=== PATIENT | male | born 1965 | race Caucasian/White ===

== ENCOUNTER 2019-09-27 10:37 | Emergency (ER) | payer MEDICARE, OTHER ==
[~2019-09-27] VITALS: Ht 167.6 cm; Wt 77.1 kg
[~2019-09-27 10:37] MED LIST: ATIVAN1 MG PO; CYCLOBENZAPRINE10 MG PO; GABAPENTIN100 MG PO; LACTULOSE10 GM/15 M PO; LASIX40 MG PO; NEXIUM40 MG PO; OXYCONTIN80 MG PO; POTASSIUM CHLO20 ME1 PO; PROAIR HFA8.5 GM INH; PROPRANOLOL HCL60 M1 PO; ROBAXIN-750750 MG PO; SIMVASTATIN40 MG PO; SINGULAIR10 MG PO; SYNTHROID75 MCG PO; TESTOSTERO200 MG/1 M TOP
--- OUTSIDE RECORDS SUMMARY | 2019-09-27 10:42 | XMS ---
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 E.D. VISIT COUNT (12 MO.) [address] [place] [address] Antoni Dugan Antoni [address] [place] [address] TOTAL 18 NOTE: Visits indicate total known visits. ED/UCC VISIT TRACKING (12 MO.) 09/27/2019 10:39 [facility] TYPE: Emergency COMPLAINT: - KIDNEY PAIN 09/26/2019 11:21 [facility] [place] TYPE: Emergency DIAGNOSES: - Flank Pain - Constipation, unspecified - Back Pain - Calculus of kidney - Unspecified abdominal pain 09/22/2019 13:29 [facility] [place] TYPE: Emergency DIAGNOSES: - Chest Pain - Hypersomnia, unspecified - Weakness - Poisoning by unsp drug/meds/biol subst, undetermined, init - Hypotension, unspecified 07/17/2019 18:[address] [facility] TYPE: Emergency DIAGNOSES: - Acute respiratory failure, unsp w hypoxia or hypercapnia - Altered Mental Status - Altered mental status, unspecified - Respiratory Distress 06/25/2019 19:04 [facility] TYPE: Emergency DIAGNOSES: - Abdominal Pain - Abdominal Injury - Generalized abdominal pain 06/13/2019 15:[address] [facility] TYPE: Emergency DIAGNOSES: - Chest Pain - Chest pain, unspecified 06/11/2019 10:13 [facility] [place] TYPE: Emergency DIAGNOSES: - Cough - Chronic obstructive pulmonary disease w (acute) exacerbation - Acute upper respiratory infection, unspecified 05/30/2019 21:57 [facility] [place] TYPE: Emergency DIAGNOSES: - Knee Pain - Knee Complaint - Pain in left knee 05/06/2019 16:48 [facility] [place] TYPE: Emergency DIAGNOSES: - Difficulty Breathing - Shortness of Breath - Chronic obstructive pulmonary disease w (acute) exacerbation - Anxiety disorder, unspecified 04/18/2019 22:44 [facility] [place] TYPE: Emergency DIAGNOSES: - Severe persistent asthma with (acute) exacerbation - difficulty breathing 04/10/2019 20:20 [facility] [place] TYPE: Emergency DIAGNOSES: - Finger Injury - Contusion of left middle finger w/o damage to nail, init - finger swelling left hand 03/29/2019 13:[address] [facility] TYPE: Emergency DIAGNOSES: - Shortness of Breath - Acute respiratory distress - Chronic obstructive pulmonary disease w (acute) exacerbation - Referral 03/20/2019 22:55 [facility] [place] TYPE: Emergency DIAGNOSES: - Panic disorder [episodic paroxysmal anxiety] - Respiratory Distress - Chronic obstructive pulmonary disease w (acute) exacerbation - difficulty breathing - Anxiety disorder due to known physiological condition - Unspecified asthma with (acute) exacerbation 03/09/2019 21:53 [facility] TYPE: Emergency DIAGNOSES: - difficulty Breathing - Pneumonia, unspecified organism - Chronic obstructive pulmonary disease w (acute) exacerbation - Diaphoresis 03/04/2019 12:15 [facility] [place] TYPE: Emergency DIAGNOSES: - Chronic obstructive pulmonary disease w (acute) exacerbation - Difficulty breathing - Shortness of Breath 01/23/2019 09:58 [facility] [place] TYPE: Emergency DIAGNOSES: - Finger Problem - Finger Swelling - External constriction of left ring finger, initial encounter 11/09/2018 05:37 [facility] TYPE: Emergency DIAGNOSES: - Cough - shortness of breath - Bronchitis, not specified as acute or chronic 10/16/2018 15:41 [facility] [place] TYPE: Emergency DIAGNOSES: - Pain in left shoulder - Shoulder Injury - Fall, shoulder pain INPATIENT VISIT TRACKING (12 MO.) 09/22/2019 13:29 [facility] [place] TYPE: Critical Care DIAGNOSES: - Hypotension, unspecified - Poisoning by unsp drug/meds/biol subst, undetermined, init - Hypersomnia, unspecified 03/29/2019 13:55 [facility] TYPE: General Medicine DIAGNOSES: - Chronic obstructive pulmonary disease w (acute) exacerbation - Acute respiratory distress 03/09/2019 21:53 [facility] TYPE: Internal Medicine DIAGNOSES: - Pneumonia, unspecified organism - Chronic obstructive pulmonary disease w (acute) exacerbation 12/13/2018 06:37 [facility] [place] TYPE: Surgery DIAGNOSES: - Unknown [id number]
[2019-09-27] MEDS ORDERED: SPIRIVA RESPIMAT4 GM INH (11:07)
[2019-09-27] MEDS ORDERED: SYMBICORT 16010.2 GM INH (11:07)
== END 2019-09-27 14:38 | disposition home or self-care (01) ==
LOC: ED 10:37
DX: K59.00 Constipation, unspecified (principal); I50.9 Heart failure, unspecified; Z87.891 Personal history of nicotine dependence; Z88.5 Allergy status to narcotic agent; Z79.899 Other long term (current) drug therapy
CPT/HCPCS: 81001; 99284

== ENCOUNTER 2023-03-06 15:52 | Observation (INO) | payer MEDICARE, OTHER ==
[~2023-03-06] VITALS: Ht 170.2 cm; Wt 66.1 kg
--- OUTSIDE RECORDS SUMMARY | ~2023-03-06 | XMS | Continuity of Care Document ---
Demographics + + + | Address | [address] [facility] [address] | | | [place] [address] | + + + | Preferred Language | Unknown | + + + | Marital Status | | + + + | Hindu Affiliation | Unknown | + + + | Race | White | + + + | Ethnic Group | Unknown | + + + Author + + + | Author | [facility] | + + + | Organization | [facility] | + + + | Address | [address] [address] [facility] | | | [place] [address] | + + + | Phone | | + + + Care Team Providers + + + + | Care Binding Nicker Name | Role | Phone | + + + + Unavailable | Unavailable | + + + + Unavailable | Unavailable | + + + + Unavailable | Unavailable | + + + + Allergies and Intolerances + + + + + | date | description | facility | type | + + + + + | (no date) | codeine | [facility] | (unknown) | + + + + + Encounters No information. Functional Status No information. Immunizations No information. Medications No information. Problems + + + + | date | description | facility | + + + + | 2019-09-22 19:18:37 | Hypersomnia, unspecified | [facility] | + + + + | 2019-09-22 19:18:37 | Hypotension, unspecified | [facility] | + + + + | 2019-09-22 19:18:37 | Poisoning by unsp | [facility] | | | drug/meds/biol subst, | [facility] | | | undetermined, init | | + + + + | 2019-09-22 20:01:21 | Hypersomnia, unspecified | [facility] | + + + + | 2019-09-22 20:01:21 | Hypotension, unspecified | [facility] | + + + + | 2019-09-22 20:01:21 | Poisoning by unsp | [facility] | | | drug/meds/biol subst, | [facility] | | | undetermined, init | | + + + + | 2019-10-15 21:56:39 | Encephalopathy, | [facility] | | | unspecified | [facility] | + + + + | 2019-10-15 21:56:39 | Ataxia, unspecified | [facility] | | | [facility] | + + + + Procedures No information. Results/Labs No information. Social History No information. Vital Signs No information."
[~2023-03-06 15:52] MED LIST changes: +SPIRIVA RESPIMAT4 GM INH; +SYMBICORT 16010.2 GM INH
--- OUTSIDE RECORDS SUMMARY | 2023-03-06 15:54 | XMS ---
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 Care History Medical/Surgical 09/30/2019 [facility] Care Recommendation: - USE EXTREME CAUTION IN GIVING NARCOTICS. - Avoid Discharge Narcotic prescriptions if at all possible. Physician discretion. [facility] REFERRAL MADE-DUE TO ER VISITS- FURTHER EDUCATION NEEDED ON CHRONIC PAIN CONDITION. E.D. VISIT COUNT (12 MO.) [facility] T[facility] 5 NOTE: Visits indicate total known visits. ED/UCC VISIT TRACKING (12 MO.) 03/06/2023 15:52 [facility] [place] TYPE: Emergency COMPLAINT: - LT KNEE NUMBNESS 03/06/2023 13:42 [facility] [place] TYPE: Emergency DIAGNOSES: - extremity numbness - Extremity Weakness 12/23/2022 10:52 [facility] [place] TYPE: Emergency DIAGNOSES: - Contusion of other part of head, initial encounter - Jaw Pain 08/09/2022 12:03 [facility] [place] TYPE: Emergency DIAGNOSES: - Lumbago with sciatica, right side - back pain 03/11/2022 15:09 [facility] [place] TYPE: Emergency DIAGNOSES: - Other chest pain - Abdominal Pain - Abdominal pain, chest pressure - Chest Tightness INPATIENT VISIT TRACKING (12 MO.) No inpatient visits to display in this time frame [id number]
[2023-03-06 20:40] VITALS: BP 130/79
[2023-03-06] MEDS ORDERED: TOPIRAMATE25 MG PO (20:53)
--- NOTE | 2023-03-06 21:00 | NUR ---
pt ARRIVES TO [facility] FLOOR, SLIDES SELF TO HOSPITAL BED, ASSISTANCE WITH MOVING LEFT LEG. IN ROOM WITH pt FOR ADMISSION HISTORY. ORIENTATION TO ROOM PROVIDED. pt VERBALIZES UNDERSTANDING TO USE CALL LIGHT BEFORE GETTING OUT OF BED. IV SL WNL. PRIMARY RN UPDATED pt HAS HISTORY OF COPD/ASTHMA, REQUESTING PRN NEBS WHILE HERE AND DAVILA MEDICATION. INHALERS AT HOME IN [place].
[2023-03-06] MEDS ORDERED: VENTOLIN HFA18 GM INH (21:18)
[2023-03-06] MEDS ORDERED: LACTULOSE10 GM/151 PO (21:18)
[2023-03-07 02:13] VITALS: BP 112/58
--- NOTE | 2023-03-07 02:39 | NUR ---
PRN TYLENOL ADMINISTERED PER REQUEST FOR DAVILA. ICE WATER REFILLED. pt WATCHING TV, DENIES ADDITIONAL NEEDS. CALL LIGHT IN REACH.
[2023-03-07 05:43] VITALS: BP 107/53
--- NOTE | 2023-03-07 06:16 | NUR ---
PT WAS ADMITTED FROM THE ER FOR A R/O STROKE. PT RESTED WELL. VSS. DAVILA MANAGED WITH TYLENOL. GOOD OUTPUT NOTED. SAFETY PRECAUTIONS MAINTAINED. CALL LIGHT WITHIN REACH. WILL CONTINUE TO MONITOR.
--- NOTE | 2023-03-07 06:44 | NUR ---
CALL LIGHT ANSWERED. COFFEE PROVIDED TO pt REQUESTED. CALL LIGHT IN REACH. NO ADDITIONAL REQUESTS.
--- NOTE | 2023-03-07 07:25 | NUR ---
RECEIVED REPORT FROM [facility] NURSE. PT IS A/O, RESPIRATIONS EVEN AND REGULAR. STATES HE FEELS WEAK TODAY. DENIES ANY OTHER NEEDS ATT. CALL LIGHT WITHIN REACH.
--- NOTE | 2023-03-07 08:00 | NUR ---
PT ASSESSMENT AND MEDIATION ADMINISTRATION COMPLETED. PT IS A/O, HE STATES HE CONTINUES TO HAVE NUMBNESS/HEAVINESS IN HIS LLE. HE IS WEAKER ON THE LEFT SIDE. CALL LIGHT WITHIN REACH.
[2023-03-07 09:57] VITALS: BP 116/65
[2023-03-07] MEDS ORDERED: FUROSEMIDE20 MG PO (10:41)
[2023-03-07] MEDS ORDERED: LEVOTHYROXINE100 MCG PO (10:47)
[2023-03-07] MEDS ORDERED: ATORVASTATIN CA20 MG PO (10:48)
[2023-03-07] MEDS ORDERED: ADULT ASPIRIN R81 MG PO (11:49)
--- NOTE | 2023-03-07 12:00 | NUR ---
Spoke with patient, spouse and family members present with patient permission. Patient lives in [place], [place], with spouse, Karma Anderson. States he drove his self in from [place] with CVA symptoms. States he is still having numbness to left leg and foot. Difficulty ambulating without assistance. Likely need for cane or walker at [place], awaiting PT eval to be done this afternoon. States brother will be transporting him at [place]. Was unable to complete MRI this AM due to discomfort during exam. Lives in a trailer with 2 steps to get inside. No other steps. States he normally walks 7 miles a day and has had an intentional weight loss of 160 lbs. If needs for PT at [place], would like to use [facility] in [place], [place]. If need for DME, walker/cane, would like to use [facility] in [place], [place].
--- NOTE | 2023-03-07 13:05 | NUR ---
MED REC COMPLETE
[2023-03-07 13:35] VITALS: BP 118/86
[2023-03-07 17:55] VITALS: BP 111/65
--- NOTE | 2023-03-07 19:34 | NUR ---
RECEIVED REPORT FROM DAY SHIFT RN. PATIENT IS RESTING IN BED. PATIENT DENIES ANY NEEDS. CALL LIGHT IN REACH.
--- NOTE | 2023-03-07 19:40 | NUR ---
ASSISTED PATIENT TO THE BATHROOM AND BACK TO BED USING WALKER. PATIENT URINATED IN THE HAT 600ML YELLOW URINE. PATIENT ASKED TYLENOL FOR HEADACHE. PRIMARY RN NOTIFIED. NO OTHER NEEDS AT THIS TIME.
[2023-03-07 20:07] VITALS: BP 112/63
--- NOTE | 2023-03-07 20:25 | NUR ---
PATIENT ASSESMENT COMPLETED. PATIENTS VITALS TAKEN AND RECORDED. INTAKE AND OUTPUT RECORDED. PATIENTS PM MEDS GIVEN PER ORDER. PATIENT REPORTS HEADACHE THAT IS 4/10, PRN TYLENOL GIVEN PER ORDER. PATIENTS IV FLUSHED AND SL PER ORDER. PATIENT STATED "MY LEFT LEG FEELS HEAVY AND NUMB". PATIENT HAS NOTED WEAKNESS IN LLE. PATIENT REPORTS MILD NUMBNESS AND WEAKNESS IN RUE. PATIENT PROVIDED WITH FRESH WATER. PATIENT DENIES ANY FURTHER NEEDS. CALL LIGHT IN REACH.
--- NOTE | 2023-03-07 22:21 | NUR ---
PATIENT IS RESTING IN BED WITH EYES CLOSED, RR 15. ON TELE #6, HR 47, CALL LIGHT IN REACH.
--- NOTE | 2023-03-08 00:21 | NUR ---
PATIENT IS RESTING IN BED WITH EYES CLOSED, RR 15. CALL LIGHT IN REACH.
--- NOTE | 2023-03-08 02:22 | NUR ---
PATIENT IS RESTING IN BED WITH EYES CLSOED. BREATHING IS EVEN AND UNLABORED. PATIENT IS ON TELE#6 AND HR IS 46. CALL LIGHT IN REACH.
--- NOTE | 2023-03-08 04:17 | NUR ---
PATIENT IS RESTING IN BED WITH EYES CLSOED, RR15. CALL LIGHT IN REACH.
[2023-03-08 05:21] VITALS: BP 130/66
--- NOTE | 2023-03-08 05:31 | NUR ---
PATIENTS VITALS TAKEN AND RECORDED. PATIENTS URINAL EMPTIED. INTAKE AND OUTPUT RECORDED. PATIENT REPORTS HEADACHE PAIN AT A 2/10 AND DENIES THE NEED FOR INTERVENTION AT THIS TIME. PATIENT DENIES ANY NEEDS. CALL LIGHT IN REACH.
--- NOTE | 2023-03-08 06:40 | NUR ---
CALL LIGHT ANSWERED. pt COMPLAINS OF DAVILA AND STOMACH "QUEASINESS". PRN ZOFRAN ADMINISTERED PER REQUEST. PRN TYLENOL ADMINISTERED. URINAL EMPTIED. CALL LIGHT IN REACH.
--- NOTE | 2023-03-08 07:15 | NUR ---
REPORT RECEIVED FROM SARANYA CARR. PT SITTING UP IN BED WATCHING TV. PT DENIES ANY NEEDS AT THIS TIME. CALL LIGHT IN REACH.
--- NOTE | 2023-03-08 08:30 | NUR ---
Pt discused in 829 meeting. plans on pt dc to home today when MRI completed. Pt will need a AFO brace.
[2023-03-08 08:31] VITALS: BP 111/68
--- NOTE | 2023-03-08 08:31 | NUR ---
IN TO ADMINISTER MEDICATIONS, SEE MAR. PT TAKES PO MEDICATIONS WITH NO ISSUES. VITALS COMPLETE. ASSESSMENT COMPLETE. PT REPORTING PAIN 7/10 HEADACHE AND PT POINTS TO BACK OF HEAD AND STATES "RIGHT BACK HERE." LUNG SOUNDS CLEAR. BOWEL TONES ACTIVE. PT REPORTS NUMBNESS IN LLE. PEDAL PULSES PALPABLE AND EQUAL. PT UNABLE TO FEEL LLE WHEN TOUCHED. PT REPORTS NUMBNESS IN LUE, BUT CAN FEEL TOUCH. PT DENIES ANY OTHER NEEDS AT THIS TIME. CALL LIGHT IN REACH.
--- NOTE | 2023-03-08 09:25 | NUR ---
LEFT VM FOR PTS PCP. PCP OFFICE DID NOT ANSWER
[2023-03-08] MEDS ORDERED: CLOPIDOGREL75 MG PO (11:47)
[2023-03-08] MEDS ORDERED: SEROQUEL25 MG PO (11:58)
[2023-03-08 12:45] VITALS: BP 118/62
--- NOTE | 2023-03-08 13:10 | NUR ---
IN TO GO OVER DC PACKET. PT VERBALIZES UNDERSTANDING, QUESTIONS ANSWERED. IV REMOVED WNL. TELE DC'd. PT DENIES ANY OTHER NEEDS AT THIS TIME. CALL LIGHT IN REACH.
--- NOTE | 2023-03-08 13:12 | NUR ---
PT IN BED. APPEARED TO BE GENERALLY IN GOOD SPIRITS. EXPRESSED APPRECIATION OF VISIT. PRAYED. PT REQUESTED LOADING SUPERVISOR VISIT THIS PM. I RELAYED THAT REQUEST TO .
--- NOTE | 2023-03-08 14:00 | NUR ---
Spoke with pt. He cont. to want to go to [facility] rehab in [facility]. I spoke with them and they request we send the chart. Let them know the pt will need rehab and a AFO brace.
--- NOTE | 2023-03-08 14:31 | NUR ---
IN TO ROUND ON PT. PT ASKING ABOUT FOOD. WILL CALL AND ORDER SANDWICH BOX. PT DENIES ANY OTHER NEEDS AT THIS TIME. CALL LIGHT IN REACH.
--- NOTE | 2023-03-08 14:40 | NUR ---
Spoke with Dr. Wheat and orders received for OP therapy. Chart faxed to [facility]. Notified Jim, they will review the chart and call him to set up and appt. Pt plans on dc shortly.
[2023-03-08 14:57] VITALS: BP 130/79
--- NOTE | 2023-03-09 06:55 | EKG ---
[facility] [address] [facility] [address] [place], [place] [address] Signed Sinus bradycardia Otherwise normal ECG No previous ECGs available Confirmed by SUNNI TUBBS MD ([id number]) on 03/09/2023 6:55:25 AM Electronically Signed By: SUNNI TUBBS 03/09/23 0655 PATIENT NAME: GEREMIAS JEAN-BAPTISTE Electrocardiogram DATE OF : 69 PHYSICIAN: SUNNI TUBBS REPORT #: [id number] REPORT IS CONFIDENTIAL AND NOT TO BE RELEASED WITHOUT AUTHORIZATION
== END 2023-03-08 14:43 | disposition home or self-care (01) ==
LOC: ED 15:52 → MS 15:53
PROVIDERS: ADMIT Internal Medicine; ATTEND Internal Medicine
DX: I63.9 Cerebral infarction, unspecified (principal); R20.0 Anesthesia of skin; G83.14 Monoplegia of lower limb affecting left nondominant side; F41.9 Anxiety disorder, unspecified; M21.372 Foot drop, left foot; R29.712 NIHSS score 12; Z83.3 Family history of diabetes mellitus; Z86.73 Personal history of transient ischemic attack (TIA), and cerebral infarction without residual deficits; Z88.5 Allergy status to narcotic agent; Z87.891 Personal history of nicotine dependence
CPT/HCPCS: 36415; 70450; 70496; 70498; 70553; 71045; 80048; 80053; 85025; 85610; 85730; 93005; 93010; 93306; 94640; 97163; 99285 25; A9270; A9577; G0378; J2405